=== PATIENT | female | born 1975 | race Caucasian/White ===

== ENCOUNTER 2021-01-08 10:08 | Emergency (ER) | payer BC, OTHER ==
[~2021-01-08] VITALS: Ht 167 cm; Wt 68.0 kg
[~2021-01-08 10:08] MED LIST: HYDR-34; OXYC-188
[2021-01-08] MEDS ORDERED: GABAPENTIN (11:00)
[2021-01-08 11:02] LABS: BASOPHILS % (AUTO) 0 % (0-10); EOSINOPHILS # (AUTO) 0.1 10^3/uL (0.0-0.3); EOSINOPHILS % (AUTO) 2 % (0-10); HEMATOCRIT 35 % (35-52); HEMOGLOBIN 11.5 g/dL (11.5-16.0); LYMPHOCYTES # (AUTO) 1.3 10^3/uL (1.0-4.0); LYMPHOCYTES % (AUTO) 25 % (12-44); MEAN CORPUSCULAR HEMOGLOBIN 30 pg (25-34); MEAN CORPUSCULAR HGB CONC 33 g/dL (32-36); MEAN CORPUSCULAR VOLUME 90 fL (80-99); MEAN PLATELET VOLUME 8.7 fL (9.0-12.2); MONOCYTES # (AUTO) 0.5 10^3/uL (0.0-1.0); MONOCYTES % (AUTO) 10 % (0-12); NEUTROPHILS # (AUTO) 3.1 10^3/uL (1.8-7.8); NEUTROPHILS % (AUTO) 62 % (42-75); PLATELET COUNT 328 10^3/uL (130-400)
[2021-01-08 11:12] LABS: CHLORIDE 106 MMOL/L (98-107); POTASSIUM 4.3 MMOL/L (3.6-5.0); SODIUM 139 MMOL/L (135-145)
[2021-01-08 11:13] LABS: CALCIUM 9.1 MG/DL (8.5-10.1)
[2021-01-08 11:14] LABS: GLUCOSE 82 MG/DL (70-105)
[2021-01-08 11:15] LABS: CARBON DIOXIDE 23 MMOL/L (21-32)
[2021-01-08 11:17] LABS: CREATININE SERUM 0.76 MG/DL (0.60-1.30); GFR ESTIMATED > 60
[2021-01-08 11:18] LABS: BUN/CREATININE RATIO 20
[2021-01-08 11:20] LABS: MAGNESIUM 2.1 MG/DL (1.6-2.4)
--- NOTE | 2021-01-08 11:51 | ED Lower Extremity ---
General Chief Complaint: Lower Extremity Stated Complaint: POST OP L LEG REDNESS/PAIN Nursing Triage Note: PT AMB TO ROOM 4 PT CO OF L THIGH, GROIN PAIN AND SWELLING. PT STATES SHE THINKS MAYBE SHE HAS A BLOOD CLOT. PT HAS HAD BACK SURG ON 12/20/20 FUSION FRONT AND BACK OF L5-S1. PT HAS FEMORAL AND PEDAL PULSES ON L EXTREMITY PRESENT. Nursing Sepsis Screen: No Definite Risk Source: patient Exam Limitations: no limitations ([facility]) History of Present Illness Date Seen by Provider: Jan 08, 2021 Time Seen by Provider: 11:46 Initial Comments Nicole is a 45 y/o female that presents to the ER with two days of left lower extremity pain. The pain is felt in her left groin and left calf. She has associated swelling of the left groin area when compared to the right. Nothing has made it better or worse. Patient had Fusion of the L5-S1 on 12/20/20. Since the surgery she has been recovering at her mothers in [facility]. Denies F/C, N/V, SOB, Chest pain, Abdominal pain, changes in bowel or bladder function, parasthesia of the LE or muscle weakness. Onset: other (two days ) Severity: mild Pain/Injury Location: left leg, left thigh Method of Injury: unknown Modifying Factors: Improves With Other (Constant ) ([facility]AL) Allergies and Home Medications Allergies Coded Allergies: Penicillins (Unverified Allergy, Mild, 04/27/09) Home Medications Apixaban 5 Mg Tablet, 5 MG PO BID TAKE 2 TABLETS BID X 7 DAYS, THEN 1 TABLET BID Prescribed by: SUDEEP BURGER on 01/08/21 1218 Patient Home Medication List Home Medication List Reviewed: Yes (SUDEEP DE LA ROSA MD) Review of Systems Constitutional: no symptoms reported EENTM: no symptoms reported Respiratory: no symptoms reported Cardiovascular: no symptoms reported Gastrointestinal: no symptoms reported Genitourinary: no symptoms reported Musculoskeletal: No muscle weakness; other (Left thigh and leg pain ) Skin: no symptoms reported Psychiatric/Neurological: No Symptoms Reported ([facility]) Past Ycsmwpd-Sfbthy-Cfakjw Hx Past Med/Social Hx: Reviewed Nursing Past Med/Soc Hx (SUDEEP DE LA ROSA MD) Patient Social History Alcohol Use: Denies Use Smoking Status: Never a Smoker Recent Infectious Disease Expo: No Recent Hopitalizations: Yes (BACK SURGERY) (EMIGDIOAYAD GONZALESON MED STUDEN) Seasonal Allergies Seasonal Allergies: Yes (EMIGDIO,HEAVEN MED STUDEN) Past Medical History Surgeries: Yes Adenoidectomy, Hysterectomy, Orthopedic, Tonsillectomy Respiratory: No Cardiac: No Neurological: No Genitourinary: No Gastrointestinal: No Back Injury, Chronic Back Pain Endocrine: No HEENT: No Cancer: No Psychosocial: No Integumentary: No (EMIGDIO,HEAVEN MED STUDEN) Orthopedic (Lumbar fusion) (SUDEEP DE LA ROSA MD) Physical Exam Vital Signs Vital Signs - First Documented 01/08/21 10:20 Temp 36.5 Pulse 77 Resp 20 B/P (MAP) 153/100 (117) Pulse Ox 100 (SUDEEP DE LA ROSA MD) Vital Signs Capillary Refill : Less Than 3 Seconds ([facility]AL MED ARIELLAEN) Height, Weight, BMI Height: '" Weight: lbs. oz. kg; 24.00 BMI Method: General Appearance: WD/WN, no apparent distress HEENT: PERRL/EOMI Neck: non-tender, full range of motion Cardiovascular: normal peripheral pulses, regular rate, rhythm, no edema Respiratory: chest non-tender, normal breath sounds, no respiratory distress, no accessory muscle use Gastrointestinal: soft, tenderness (located over surgical incsion ) Back: no CVA tenderness Hips: left hip swelling (left inguinal area with minimal swelling when compared to right ) Legs: left leg soft tissue tenderness (Calf tenderness with palpation ) Knees: bilateral knee non-tender Ankles: bilateral ankle non-tender Feet: bilateral foot non-tender Neurologic/Tendon: normal sensation, normal motor functions Neurologic/Psychiatric: lock plater II-XII nml as tested, alert, normal mood/affect, oriented x 3 Skin: normal color Lymphatic: no adenopathy sensory and motor function intact in LE. Left LE tenderness to palpation. Minimal swelling in the left groin (EMIGDIO,HEAVEN MED STUDEN) Progress/Results/Core Measures Results/Orders Lab Results Laboratory Tests Test 01/08/21 10:55 Range/Units White Blood Count 5.0 4.3-11.0 10^3/uL Red Blood Count 3.85 3.80-5.11 10^6/uL Hemoglobin 11.5 11.5-16.0 g/dL Hematocrit 35 35-52 % Mean Corpuscular Volume 90 80-99 fL Mean Corpuscular Hemoglobin 30 25-34 pg Mean Corpuscular Hemoglobin Concent 33 32-36 g/dL Red Cell Distribution Width 11.9 10.0-14.5 % Platelet Count 328 130-400 10^3/uL Mean Platelet Volume 8.7 L 9.0-12.2 fL Immature Granulocyte % (Auto) 0 % Neutrophils (%) (Auto) 62 42-75 % Lymphocytes (%) (Auto) 25 12-44 % Monocytes (%) (Auto) 10 0-12 % Eosinophils (%) (Auto) 2 0-10 % Basophils (%) (Auto) 0 0-10 % Neutrophils # (Auto) 3.1 1.8-7.8 10^3/uL Lymphocytes # (Auto) 1.3 1.0-4.0 10^3/uL Monocytes # (Auto) 0.5 0.0-1.0 10^3/uL Eosinophils # (Auto) 0.1 0.0-0.3 10^3/uL Basophils # (Auto) 0.0 0.0-0.1 10^3/uL Immature Granulocyte # (Auto) 0.0 0.0-0.1 10^3/uL D-Dimer 1.93 H 0.00-0.49 UG/ML Sodium Level 139 135-145 MMOL/L Potassium Level 4.3 3.6-5.0 MMOL/L Chloride Level 106 98-107 MMOL/L Carbon Dioxide Level 23 21-32 MMOL/L Anion Gap 10 5-14 MMOL/L Blood Urea Nitrogen 15 7-18 MG/DL Creatinine 0.76 0.60-1.30 MG/DL Estimat Glomerular Filtration Rate > 60 BUN/Creatinine Ratio 20 Glucose Level 82 70-105 MG/DL Calcium Level 9.1 8.5-10.1 MG/DL Magnesium Level 2.1 1.6-2.4 MG/DL C-Reactive Protein High Sensitivity 0.19 0.00-0.50 MG/DL (SUDEEP DE LA ROSA MD) My Orders Orders - SUDEEP DE LA ROSA MD Basic Metabolic Panel (01/08/21 10:36) Cbc With Automated Diff (01/08/21 10:36) Hs C Reactive Protein (01/08/21 10:36) Fibrin Degradation Products (01/08/21 10:36) Magnesium (01/08/21 10:36) Apixaban Tablet (Eliquis Tablet) (01/08/21 12:15) (SUDEEP DE LA ROSA MD) Medications Given in ED Current Medications Medications Dose Ordered Sig/Nina Route Start Time Stop Time Status Last Admin Dose Admin Apixaban 10 mg ONCE ONCE PO 01/08/21 12:15 01/08/21 12:16 DC 01/08/21 12:25 10 MG (SUDEEP DE LA ROSA MD) Vital Signs/I&O 01/08/21 01/08/21 10:20 12:28 Temp 36.5 Pulse 77 72 Resp 20 20 B/P (MAP) 153/100 (117) 136/76 (117) Pulse Ox 100 100 (SUDEEP DE LA ROSA MD) Blood Pressure Mean: 117 Progress Progress Note : Progress Note Labs were obtained. D-dimer was elevated. Ultrasound services are not available at this time. Discussed options with the patient including empiric treatment with Eliquis. She seems to have no contraindications to therapy with anticoagulants. A dose of Eliquis was administered in the emergency room. Her family has some Eliquis at home she can use until she is able to obtain an ultrasound. We are going to coordinate that with either [facility] or [facility] tomorrow. Lars Elizabeth will help facilitate this as a credentialed member of both the [facility] medical staff and the [facility] medical staff. (SUDEEP DE LA ROSA MD) Departure Impression Primary Impression: Left leg pain Additional Impression: Elevated d-dimer Disposition: 01 HOME, SELF-CARE Condition: Stable Departure-Patient Inst. Decision time for Depature: 12:15 (SUDEEP DE LA ROSA MD) Referrals: NO,LOCAL PHYSICIAN (PCP/Family) Primary Care Physician Patient Instructions: Deep Vein Thrombosis (Blood Clots in the Legs) Add. Discharge Instructions: Your D-dimer was elevated indicating that your leg pain may be from a blood clot (DVT). Take Eliquis 10 mg every 12 hours until you have an answer regarding presence of DVT by ultrasound. If ultrasound is positive for DVT, fill the prescription provided. Call [facility] tomorrow after 8: 00 a.m. to determine if ultrasound is available. If it is not available at [facility], call Lars Elizabeth at the [facility] emergency room. We will ensure that an ultrasound is arranged. While on Eliquis monitor for any unusual bleeding and return to care if any bleeding is noted. Avoid any activities that would increase risk for injury while on Eliquis. Call or return to care if you have any further questions or concerns. All discharge instructions reviewed with patient and/or family. Voiced understanding. Scripts Apixaban (Eliquis) 5 Mg Tablet 5 MG PO BID for 30 Days, #72 TAB TAKE 2 TABLETS BID X 7 DAYS, THEN 1 TABLET BID Prov: SUDEEP DE LA ROSA MD 01/08/21 Medical Student Attestation and Attending Note: I have personally interviewed and examined this patient along with Heaven Ruvalcaba, MS 4. I have reviewed student documentation including history, physical, and assessments. I agree with the documentation except where otherwise noted. Exam: General: Alert, oriented, no acute distress, well developed HEENT: Normocephalic and atraumatic Heart: Regular rate and rhythm without murmur Lungs: Clear to auscultation bilaterally with normal effort Abdomen: Soft, nontender, nondistended, normal bowel sounds Extremities: Mild tenderness to the left calf, mild swelling and tenderness to the anterior left thigh. Sensation, pedal pulse and capillary refill normal in the left foot. Neuropsych: Alert, oriented, no focal deficits Skin: Warm and dry without rashes. Incisions over the lower back and lower abdomen are well-healing clean, dry, and intact without evidence of inflammation or drainage. (SUDEEP DE LA ROSA MD) [facility] Jan 08, 2021 11:51 SUDEEP DE LA ROSA MD Jan 08, 2021 12:13
[2021-01-08] MEDS ORDERED: APIXABAN 5 MG (ELIQUIS) TABLET PO ONE (12:15)
[2021-01-08] MEDS ORDERED: APIX5TAB PO (12:18)
[2021-01-08 12:28] VITALS: BP 136/76
== END 2021-01-08 12:28 | disposition home or self-care (01) ==
LOC: EDUNIT# 10:08 → ER 10:10
DX: M79.605 Pain in left leg (principal); R79.1 Abnormal coagulation profile; Z88.0 Allergy status to penicillin; Z79.01 Long term (current) use of anticoagulants
CPT/HCPCS: 36415; 80048; 83735; 85025; 85379; 86141